=== PATIENT | female | born 1950 | race Caucasian/White ===

== ENCOUNTER → 2016-11-30 | Outpatient (CLI) | payer MEDICARE, BC ==
--- NOTE | 2016-12-01 15:47 | PCVCIMAG ---
APPROVED REPORT Exam: Nuclear Stress Test Indication: High Ca Score Patient Location: Out-Patient Stress Nurse: Nellie Ramirez RN [place] Tech:ROGER DeanMT Ht: 5 ft 7 in Wt: 190 lbs BSA: 1.98 m2 HR: 94 bpm BP: 116/74 mmHg BMI: 29.7 Rhythm: SR Medical History Medical History: Hyperlipidemia, Diabetic Noninsulin Medications: Diltiazem, fosamax, atorvastatin, aspirin, prozac, fish oil, metformin Allergies: PCN Cardiac Risk Factors: Age Pretest Chest Pain Characteristics: No chest pain Exercise History: Physically active NM EXAM: Myocardial Perfusion REST/STRESS Imaging Protocol: Rest Tc-99m/Stress Tc-99m 1 day Resting Data Rest SPECT myocardial perfusion imaging was performed in supine position 45 minutes following the intravenous injection of 10.5 mCi of Tc-99m Sestamibi. Time of rest injection: 814 Date: 11/30/2016 Administration Route: IV Administration Site: Right AC Exercise Stress At peak stress, the patient was injected intravenously with 30.8mCi of Tc-99m Sestamibi. Time of stress injection: 949 Date: 11/30/2016 Administration Route: IV Administration Site: Right AC Gated Stress SPECT was performed 45 minutes after stress injection. The images were gated to evaluate regional wall motion and calculate left ventricular ejection fraction. Study Data Post stress, the left ventricular ejection was 67%.. SSS: 3 SRS: 7 SDS: 0 TID = 0.91. Perfusion There is a medium area of moderately reduced uptake in the apical segment of the anterior wall which is seen on the stress images as well as the resting images. This area thickens and moves normally and is most consistent with attenuation artifact. Wall Motion Normal left ventricular wall motion. Nuclear Conclusion 1. LOW RISK STUDY Interpreted by: Laura Blanco MD Electronically Approved: 12/01/2016 15:45:02 Stress Test Details Stress Test: Exercise stress testing was performed using a Buster protocol. HR Resting HR: 94 bpmMax Heart Rate (APMHR): 153 bpm Max HR Achieved: 148 bpmTarget HR (85% APMHR): 130 bpm % of APMHR: 96 Recovery HR: 86 bpm BP Resting BP: 116/74 mmHg Max BP: 142/84 mmHg ECG Resting ECG: Sinus Rhythm Stress ECG: Sinus Tachycardia Recovery ECG: Sinus Rhythm Clinical Reason for Termination: Fatigue Stress Symptoms: Dyspnea, Leg Fatigue Exercise duration: 8 min 30 sec Exercise capacity: 10.10 METs Symptoms resolved during recovery. Stress ECG Conclusion 1. SUBJECTIVELY NEGATIVE FOR ISCHEMIA 2. ELECTROCARDIOGRAPHICALLY NEGATIVE FOR ISCHEMIA 3. AVERAGE FUNCTIONAL CAPACITY <Conclusion> 1. SUBJECTIVELY NEGATIVE FOR ISCHEMIA 2. ELECTROCARDIOGRAPHICALLY NEGATIVE FOR ISCHEMIA 3. AVERAGE FUNCTIONAL CAPACITY
== END | disposition home or self-care (01) ==
LOC: PCVCIMAG 07:53
PROVIDERS: ATTEND Internal Medicine
DX: I25.10 Atherosclerotic heart disease of native coronary artery without angina pectoris (principal); R93.1 Abnormal findings on diagnostic imaging of heart and coronary circulation; E78.5 Hyperlipidemia, unspecified; E11.9 Type 2 diabetes mellitus without complications; R53.83 Other fatigue; R00.0 Tachycardia, unspecified
CPT/HCPCS: 78452; 93017; A9500